=== PATIENT | female | born 1985 | race Caucasian/White ===

== ENCOUNTER 2016-11-27 21:32 | Outpatient (CLI) | payer MEDICAID ==
[~2016-11-27] VITALS: Ht 165.1 cm; Wt 107.0 kg
[~2016-11-27 21:32] MED LIST: PREN-53
[2016-11-27 21:50] VITALS: BP 130/82
== END 2016-11-27 22:10 ==
LOC: EUOP 21:32 → OB 21:32 → EUOP 22:10
PROVIDERS: ATTEND Obstetrics & Gynecology
DX: O36.8130 Decreased fetal movements, third trimester, not applicable or unspecified (principal); Z3A.33 33 weeks gestation of pregnancy
CPT/HCPCS: 99201